=== PATIENT | male | born 1965 | race Caucasian/White ===

== ENCOUNTER 2022-08-01 13:07 | Emergency (ER) | payer OTHER, SELFPAY ==
--- NOTE | ~2022-08-01 | CT_ITS ---
EXAMINATION: CT CERVICAL SPINE CLINICAL INFORMATION: Reason for Exam fall, confusion COMPARISON: No prior CT available, TECHNIQUE: Computed axial sagittal and coronal images acquired using department's standard protocol. This CT examination was performed using dose optimization techniques as appropriate, variously including the following: *Automated exposure control *Adjustment of mA and/or kV according to patient size (this includes techniques or standardized protocols for targeted exams where dose is matched to indication/reason for exam; i.e. extremities or head) *Use of iterative reconstruction technique CONTRAST: None DLP: 1380 mGy-cm FINDINGS: SKULL BASE: Visualized structures at skull base are normal, air-fluid level left maxillary sinus. CERVICAL VERTEBRAE: Seven cervical vertebrae identified maintaining proper height and alignment, DISCS: Loss of disc height and developed osteophyte suggest degenerative disc disease at C4-C5, C5-C6, C6-C7 and C7-T1. There are osteophytes developed from the edges of endplates encroaching on the neural foramen bilaterally at C5-C6 C1-C2: There is no CT evidence of significant osseous narrowing of the central canal or neural foramen. C2-C3: There is no CT evidence of significant osseous narrowing of the central canal or neural foramen. C3-C4: There is no CT evidence of significant osseous narrowing of the central canal or neural foramen. C4-C5: There is no CT evidence of significant osseous narrowing of the central canal or neural foramen. C5-C6: Circumferential disc bulge and developed osteophyte ridge encroaching on the neural foramens especially on the left causing foraminal stenosis. There is also narrowing of the central canal at this level cannot rule out central stenosis. Bilateral facet joints arthropathy. C6-C7: There is no CT evidence of significant osseous narrowing of the central canal or neural foramen. C7-T1: There is no CT evidence of significant osseous narrowing of the central canal or neural foramen. PARAVERTEBRAL SOFT TISSUE: Paravertebral soft tissues unremarkable. CT/CT cervical spine wo IV con IMPRESSION: * No CT evidence of cervical spine fracture. * Loss of disc height and developed osteophyte suggest degenerative disc disease at multiple levels. * Narrowing of disc osteophyte encroaching on the neural foramen bilaterally at C5-C6. * Narrowing of the central canal and neural foramen especially the left at C5-C6 cannot rule out central stenosis. If patient has neurological symptoms may consider correlation with MRI. * Air-fluid level left maxillary sinus.
--- NOTE | ~2022-08-01 | CT_ITS ---
CT head/brain wo IV con CLINICAL INFORMATION: Reason for Exam fall, confusion, head strike COMPARISON: No prior CT scan available for comparison. TECHNIQUE: Department standard protocol. This CT examination was performed using dose optimization techniques as appropriate, variously including the following: *Automated exposure control *Adjustment of mA and/or kV according to patient size (this includes techniques or standardized protocols for targeted exams where dose is matched to indication/reason for exam; i.e. extremities or head) *Use of iterative reconstruction technique DLP: 908 mGy-cm FINDINGS: CEREBRAL HEMISPHERES: There is no evidence of intra-axial or extra-axial mass, hemorrhage or acute infarct. BRAIN PARENCHYMA: Normal hankins-white matter differentiation. SUBDURAL SPACE: No bleed. BASAL GANGLIA AND PINEAL GLAND: Unremarkable VENTRICLES: Symmetric and normal in size. CEREBELLUM AND BRAINSTEM: No space-occupying mass, hemorrhage or acute infarct. CEREBELLOPONTINE ANGLES: No lesion found. ORBITS: No intraorbital mass. VESSELS: Unremarkable SKULL BASE: Unremarkable INCLUDED SINUSES AT SKULL BASE: Fluid air-fluid level left maxillary sinus SKULL AND SKIN: No fracture or bone lesion found. CT/CT head/brain wo IV con IMPRESSION: No CT evidence of intracranial space-occupying mass, bleed or infarct. Air-fluid level left maxillary sinus.
[2022-08-01 13:14] VITALS: PULSE 89; O2SAT 95; BMI 35.5
--- NOTE | 2022-08-01 13:31 | ECG_ITS ---
Test Reason : FALL Blood Pressure : / mmHG Vent. Rate : 090 BPM Atrial Rate : 090 BPM P-R Int : 164 ms QRS Dur : 136 ms QT Int : 368 ms P-R-T Axes : 059 041 039 degrees QTc Int : 450 ms Normal sinus rhythm Right bundle branch block Abnormal ECG No previous ECGs available Referred By: Ana Maria Carroll Electronically Signed By:VIRGINIA WOLFE
[2022-08-01 13:48] LABS: Glucose, Whole Blood 118 mg/dL (60-115)
[2022-08-01] MEDS: Diphth,Pertus(ACell),Tet Adult 0.5 ML SYRINGE IM (14:19)
--- NOTE | 2022-08-01 14:28 | ED.FALL ---
HPI - Fall General Chief Complaint: Fall Stated Complaint: FALL W/HEADSTRIKE AND LOC,-THIN,+CCOLLAR PER EMS Time Seen by Provider: 08/01/22 13:36 Source: patient, family and EMS Mode of arrival: EMS Limitations: no limitations History of Present Illness HPI Narrative: This is a 57-year-old male who was on a statin who presents to the emergency room after fall with a head strike. Patient reports he was ice skating with his family. He is unclear the reason for the fall but he was witnessed to have a fall backwards hitting the posterior head on the ice rink wall ledge. His happen to look back at the moment that he was falling seeing the head strike. She reports loss of consciousness. This lasted for several minutes and then the patient had some confusion with waking. Patient cannot recall the fall and feels his memory is quite fussy. He does remember going to the ice skating rink but does not remember anything after that. Prior to ice skating he felt well and had no complaints over the last few days. He does report mild headache today. He denies any neck pain, chest pain, abdominal pain, vision changes, vomiting, dizziness. He does feel that he is confused. Patient transported by EMS with a C-collar in place. MD complaint: fall Fall witnessed: yes, by family Related Data Allergies Allergy/AdvReac Type Severity Reaction Status Date / Time Unable to Assess Allergy Verified 08/01/22 13:15 Review of Systems Review of Systems: Yes all other systems are reviewed and are negative Constitutional: Constitutional: Reports no additional constitutional complaints, Denies body ache(s), Denies chills, Denies fever(s), Reports headache(s) and Denies weakness Eyes: Eyes: Reports no additional eye complaints and Denies change in vision ENT: Reports system reviewed and no additional complaints, except as documented, Denies dizziness, Reports headache(s), Denies nasal congestion, Denies nasal discharge and Denies neck pain Cardiovascular: Cardiovascular: Reports no additional cardiovascular complaints, Denies chest pain, Denies leg edema and Denies dyspnea Respiratory: Respiratory: Reports no additional respiratory complaints, Denies cough and Denies dyspnea Gastrointestinal: Gastrointestinal: Reports no additional gastrointestinal complaints, Denies abdominal pain, Denies diarrhea, Denies nausea and Denies vomiting Genitourinary: Genitourinary: Denies urinary incontinence Musculoskeletal: Musculoskeletal: Reports no additional musculoskeletal complaints, Denies back pain, Denies arthralgias, Denies joint swelling, Denies neck pain, Denies numbness and Denies tingling Integumentary/Breasts: Skin/Breast: Reports system reviewed and no additional complaints, except as docu and Denies rash Neurologic: Reports system reviewed and no additional complaints, except as documented, Denies Abnormal speech present, Reports confusion, Denies dizziness, Reports headache(s), Denies numbness, Denies tingling and Denies weakness Psychiatric: Psychiatric: Reports confusion FORMERLY [facility], [facility]–1983 Past Medical History Attestation statement: The following information was validated with the patient. Source: old records reviewed and nursing notes reviewed Social History Social History Advance Directives: No Advance Directives Information Provided: No Physical Exam Vital Signs: Vital Signs: Last Vital Signs O2 Del Method 08/01/22 13:14 BMI result Body Mass Index 35.5 Const: General: confusion Orientation/consciousness: oriented to person and confusion Limitations: no limitations HEENT: Head: Yes normal to inspection, No Carson's sign and No raccoon eyes Head images: 1. 4cm laceration. no active bleeding Ears: hearing grossly normal bilaterally and TM's normal bilaterally General nose exam: Normal external nose present Face and sinus: Yes normal facial exam Mouth: Normal oral and palatal mucosa present Throat: Yes posterior oropharynx normal, Yes tonsils normal and Yes uvula midline Eyes: General: appearance normal, both eyes and all related structures Pupils: Equal, round and reactive pupils present Neck: Other: Cervical collar in place. Unable to assess range of motion due to cervical collar Neck: Yes normal visual inspection Chest: Chest palpation & inspection: normal inspection of the chest Resp: Effort & Inspection: normal respiratory effort Auscultation: clear to auscultation bilaterally Cardio: Rate: regular rate Rhythm: regular rhythm Peripheral pulses: Peripheral pulses 2+ throughout GI: Inspection: Yes normal to inspection Palpation (GI): Soft to palpation and nontender Auscultation: normal bowel sounds Back/Spine/Pelvis: Thoracic/Lumbar Spine: thoracic and lumbar spine normal to inspection Skin: General skin exam: no rashes or lesions noted Neuro: Other: Patient unaware of location or date-cannot recall General: oriented to person, moves all extremities, confusion and Unable to assess gait Cranial nerves: Yes CN's II-XII intact bilaterally, Yes Equal, round and reactive pupils present, Yes Bilaterally intact EOM present, Yes Nystagmus not present, Yes Normal facial strength present and Yes Midline tongue present Speech: No Abnormal speech present Gait exam (Neuro): Unable to assess gait Motor exam (neuro): 5/5 motor strength present throughout Sensory Exam: Normal double simultaneous stimulation for sensation Extrem: General: Yes normal to inspection NIH Stroke Scale Internal: 2 hours post treatment Level of Consciousness: Alert Level of Consciousness Questions: Answers both questions correctly Level of Consciousness Commands: Performs both tasks correctly Best Gaze: Normal Visual: No visual loss Facial Palsy: Normal Motor Arm (Right): No drift Motor Arm (Left): No drift Motor Leg (Right): No drift Motor Leg (Left): No drift Limb Ataxia: Absent Sensory: Normal Best Language: No aphasia Dysarthia: Normal Extinction and Inattention: No abnormality Score: 0 Course Course Course Narrative: 1415-[place] call for stat read of head CT Reevaluation(s) Reevaluation #1: 1600-repeat neurological exam is normal. Patient reports he is feeling better as time has gone on. He feels that some of his memory is foggy from earlier today but is able to tell me where he is, his name, the date and time. No focal finding on exam. Serial sevens normal. Gait steady up to the bathroom. I reviewed with the patient he likely has a concussion. This was also reviewed with his . We discussed head injury care at home which includes limiting screen time, getting plenty of rest, no work for several days, no sports or activities until cleared by primary care. Reviewed worrisome signs and symptoms of when to return to the emergency room. Comfortable plan for discharge home. Medications Administered Discontinued Medications Generic Name Dose Route Start Last Admin Trade Name Patricia PRN Reason Stop Dose Admin Acetaminophen 975 mg 08/01/22 15:15 08/01/22 15:20 Acetaminophen 325 Mg Tablet PO 08/01/22 15:16 975 mg ONCE ONE Administration Diphtheria/Tetanus/Acell Pertussis 0.5 ml 08/01/22 13:46 08/01/22 14:19 Diphth,Pertus(Acell),Tet Adult 0.5 Ml Syringe IM 08/01/22 13:47 0.5 ml .ONCE ONE Administration Lidocaine/Epinephrine 30 ml 08/01/22 14:30 08/01/22 15:21 Lidocaine Hcl 1% Pf/Epi 1:200,000 30 Ml Vial SUBCUT 08/01/22 14:31 30 ml ONCE ONE Administration Procedures Laceration Laceration 1: Site: scalp Size (cm): 4 Description: linear Local Anesthetic: lidocaine 1% and with epi Pre-repair: wound explored, irrigated extensively and deep structures intact Skin layer closed with: other (graciela) Number of sutures: 6 Medical Decision Making Medical Decision Making [facility] Narrative: 57-year-old male here after a fall backwards with head strike now with subsequent confusion and loss of consciousness reportedly On arrival patient is alert. Patient cannot recall location or date or time. This is not his baseline per family. Neuro exam at rest is otherwise normal. C-collar is in place unable to assess cerebellar function or gait at this time. No other complaints. No other trauma seen. Unclear why patient fell. Will check CT head/cervical spine (called CT and patient to go directly) Will obtain labs, EKG Patient with laceration that will require repair Differential Diagnosis Differential Diagnoses: The differential diagnosis associated with the presentation includes Intracranial hemorrhage, concussion, contusion, cervical fracture, cervical sprain Lab Data [facility] Lab Attestation statement: I reviewed the patient's lab results. Result Diagrams: 08/01/22 14:28 08/01/22 14:28 Labs: Lab Results 08/01/22 08/01/22 08/01/22 Range/Units 13:45 14:28 14:28 WBC 11.5 H (4.8-10.8) X10*3/uL RBC 4.91 (4.60-5.80) X10*6/uL Hgb 15.3 (14.0-18.0) g/dl Hct 45.1 (42.0-52.0) % MCV 91.9 (80.0-98.0) fL MCH 31.2 (27.0-33.0) pg MCHC 33.9 (31.0-36.0) g/dl RDW 13.2 (11.0-16.0) % Plt Count 305 (160-400) X10*3/uL MPV 8.7 L (9.4-12.4) fL Immature Gran % (Auto) 0.3 (0.0-0.4) % Neut % (Auto) 81.2 H (45-73) % Lymph % (Auto) 9.8 L (20-40) % Mitchell % (Auto) 7.8 (2-11) % Eos % (Auto) 0.5 (0-4) % Baso % (Auto) 0.4 (0-2) % Lymph # (Auto) 1.1 L (1.2-4.9) X10*3/uL Mitchell # (Auto) 0.9 (0.1-1.2) X10*3/uL Eos # (Auto) 0.1 (0.0-0.4) X10*3/uL Baso # (Auto) 0.1 (0.0-0.2) X10*3/uL Abs Immat Gran (auto) 0.04 H (0.00-0.03) X10*3/uL Absolute Neuts (auto) 9.3 H (2.0-8.3) x10*3/uL Absolute Nucleated RBC 0.000 (0.0-0.012) X10*3/uL Nucleated RBC % (auto) 0.0 (0.0-0.2) /100WBC Sodium 140 (135-145) mmol/L Potassium 4.3 (3.3-5.1) mmol/L Chloride 105 (96-108) mmol/L Carbon Dioxide 27 (22-29) mmol/L Anion Gap 12 (12-20) BUN 13 (9-16) mg/dL Creatinine 0.97 (0.5-1.4) mg/dL Estim Creat Clear Calc 92.9 Estimated GFR > 60 POC Glucose 118 H (60-115) mg/dL Random Glucose 116 H (60-115) mg/dL Calcium 9.8 (8.4-10.2) mg/dL Total Bilirubin 0.5 (0.0-1.0) mg/dL Direct Bilirubin 0.2 (0.0-0.5) mg/dL AST 19 (5-37) U/L ALT 30 (0-40) U/L Alkaline Phosphatase 82 (39-117) U/L Troponin I High Sens (<3.5-35.0) ng/L Total Protein 7.3 (6.5-8.0) g/dL Albumin 4.4 (3.5-5.0) g/dL 08/01/22 Range/Units 14:28 WBC (4.8-10.8) X10*3/uL RBC (4.60-5.80) X10*6/uL Hgb (14.0-18.0) g/dl Hct (42.0-52.0) % MCV (80.0-98.0) fL MCH (27.0-33.0) pg MCHC (31.0-36.0) g/dl RDW (11.0-16.0) % Plt Count (160-400) X10*3/uL MPV (9.4-12.4) fL Immature Gran % (Auto) (0.0-0.4) % Neut % (Auto) (45-73) % Lymph % (Auto) (20-40) % Mitchell % (Auto) (2-11) % Eos % (Auto) (0-4) % Baso % (Auto) (0-2) % Lymph # (Auto) (1.2-4.9) X10*3/uL Mitchell # (Auto) (0.1-1.2) X10*3/uL Eos # (Auto) (0.0-0.4) X10*3/uL Baso # (Auto) (0.0-0.2) X10*3/uL Abs Immat Gran (auto) (0.00-0.03) X10*3/uL Absolute Neuts (auto) (2.0-8.3) x10*3/uL Absolute Nucleated RBC (0.0-0.012) X10*3/uL Nucleated RBC % (auto) (0.0-0.2) /100WBC Sodium (135-145) mmol/L Potassium (3.3-5.1) mmol/L Chloride (96-108) mmol/L Carbon Dioxide (22-29) mmol/L Anion Gap (12-20) BUN (9-16) mg/dL Creatinine (0.5-1.4) mg/dL Estim Creat Clear Calc Estimated GFR POC Glucose (60-115) mg/dL Random Glucose (60-115) mg/dL Calcium (8.4-10.2) mg/dL Total Bilirubin (0.0-1.0) mg/dL Direct Bilirubin (0.0-0.5) mg/dL AST (5-37) U/L ALT (0-40) U/L Alkaline Phosphatase (39-117) U/L Troponin I High Sens < 3.5 (<3.5-35.0) ng/L Total Protein (6.5-8.0) g/dL Albumin (3.5-5.0) g/dL Independent Interpretation I performed an independent interpretation of an: EKG and CT Scan (I independently reviewed the CT scan. CT negative for any acute bleed) Interpretation: I independently reviewed the EKG which shows normal sinus rhythm with a rate of 90, normal ID, normal QRS, normal QT Radiology Impression Discussion of test interpretation with radiology: I have reviewed the radiologist's reading. Radiologist Impression: FINDINGS: ? CEREBRAL HEMISPHERES: There is no evidence of intra-axial or extra-axial mass, hemorrhage or acute infarct. BRAIN PARENCHYMA: Normal hankins-white matter differentiation. SUBDURAL SPACE: No bleed. BASAL GANGLIA AND PINEAL GLAND: Unremarkable VENTRICLES: Symmetric and normal in size. CEREBELLUM AND BRAINSTEM: No space-occupying mass, hemorrhage or acute infarct. CEREBELLOPONTINE ANGLES: No lesion found. ORBITS: No intraorbital mass. VESSELS: Unremarkable SKULL BASE: Unremarkable INCLUDED SINUSES AT SKULL BASE: Fluid air-fluid level left maxillary sinus SKULL AND SKIN: No fracture or bone lesion found. CT/CT head/brain wo IV con IMPRESSION: No CT evidence of intracranial space-occupying mass, bleed or infarct. ? Air-fluid level left maxillary sinus. Independent Historian Clinical information obtained from an independent historian. History obtained from or confirmed by: Spouse Discharge Plan Discharge Clinical Impression: Concussion with loss of consciousness, Laceration of head Patient Disposition: Home, Self-Care Additional Instructions: No work for at least 3-4 days Limit screen time including TVs and phone. Get plenty of brain rest Return for severe headache, multiple episodes of vomiting, change in behavior No sports or activity until re-evaluated by primary care Follow-up with primary care within 7-10 days Hard[place] should be removed in 10 days You may wash your hair normal Referrals: Physician,Unknown J [Primary Care Provider] - 1 week Stand Alone Forms: Work/School Release Interventions: ED Discharge Assessment Last Done: 08/01/22 16:50 Discharge Date/Time: 08/01/22 16:51
[2022-08-01 14:35] LABS: MANUAL DIFF FLAG NO
[2022-08-01 14:37] LABS: Basophils Absolute Auto 0.1 X10*3/uL (0.0-0.2); Basophils Percent Auto 0.4 % (0-2); Eosinophils Absolute Auto 0.1 X10*3/uL (0.0-0.4); Eosinophils Percent Auto 0.5 % (0-4); Hematocrit 45.1 % (42.0-52.0); Hemoglobin 15.3 g/dl (14.0-18.0); Imm Gran Abs Auto 0.04 X10*3/uL (0.00-0.03); Imm Gran Pct Auto 0.3 % (0.0-0.4); Lymphocytes Absolute Auto 1.1 X10*3/uL (1.2-4.9); Lymphocytes Percent Auto 9.8 % (20-40); Mean Corpuscular HGB Conc 33.9 g/dl (31.0-36.0); Mean Corpuscular Hemoglobin 31.2 pg (27.0-33.0); Mean Corpuscular Volume 91.9 fL (80.0-98.0); Mean Platelet Volume 8.7 fL (9.4-12.4); Monocytes Absolute Auto 0.9 X10*3/uL (0.1-1.2); Monocytes Percent Auto 7.8 % (2-11); Neutrophils Absolute Auto 9.3 x10*3/uL (2.0-8.3); Neutrophils Percent Auto 81.2 % (45-73); Platelet Count 305 X10*3/uL (160-400); Red Blood Count 4.91 X10*6/uL (4.60-5.80); Red Cell Distribution Width 13.2 % (11.0-16.0); White Blood Count 11.5 X10*3/uL (4.8-10.8)
[2022-08-01 14:54] LABS: Alanine Aminotransferase 30 U/L (0-40); Albumin Level 4.4 g/dL (3.5-5.0); Alkaline Phosphatase 82 U/L (39-117); Anion Gap 12 (12-20); Aspartate Amino Transferase 19 U/L (5-37); Bilirubin Direct 0.2 mg/dL (0.0-0.5); Bilirubin Total 0.5 mg/dL (0.0-1.0); Blood Urea Nitrogen 13 mg/dL (9-16); Calcium 9.8 mg/dL (8.4-10.2); Carbon Dioxide 27 mmol/L (22-29); Chloride 105 mmol/L (96-108); Creatinine Clr Calc Pharmacy 92.9; Estimated Glomerular Filt Rate > 60; Glucose Random 116 mg/dL (60-115); Potassium 4.3 mmol/L (3.3-5.1); Sodium 140 mmol/L (135-145); Total Protein 7.3 g/dL (6.5-8.0)
[2022-08-01 15:02] LABS: Troponin-I High Sensitivity < 3.5 ng/L (<3.5-35.0)
[2022-08-01] MEDS: Acetaminophen 325 MG TABLET 975 MG PO (15:20)
[2022-08-01] MEDS: Lidocaine HCl 1% PF/Epi 1:200,000 30 ML VIAL SUBCUT (15:21)
== END 2022-08-01 16:51 | disposition home or self-care (01) ==
PROVIDERS: Nurse Practitioner Family; Emergency Provider Student in an Organized Health Care Education/Training Program
DX: S06.0X1A Concussion with loss of consciousness of 30 minutes or less, initial encounter (principal); S01.01XA Laceration without foreign body of scalp, initial encounter; W00.0XXA Fall on same level due to ice and snow, initial encounter; Y93.21 Activity, ice skating; Y92.330 Ice skating rink (indoor) (outdoor) as the place of occurrence of the external cause; Y99.9 Unspecified external cause status; Z23 Encounter for immunization
CPT/HCPCS: 12002; 36415; 70450; 72125; 80048; 80076; 82947; 84484; 85025; 90471; 90715; 93005; 99284

== ENCOUNTER 2023-10-29 19:47 | Emergency (ER) | payer OTHER, SELFPAY ==
[2023-10-29 20:11] VITALS: BP 132/84; PULSE 91; RESP 18; TEMP 36.6; O2SAT 99; BMI 32.1
--- NOTE | 2023-10-29 21:32 | ED.SKABFB ---
HPI - Skin/Abscess/Foreign Bdy General Chief complaint: Skin/Abscess/Foreign Body Stated complaint: tick bite, imbedded Time Seen by Provider: 10/29/23 21:04 Source: patient and family Mode of arrival: ambulatory Limitations: no limitations History of Present Illness HPI narrative: 58 yo male with PMH of HLD here with c/o L neck tick bite - since yesterday attempted self removal and part of tick is embedded still. complaint: insect bite/sting Onset (ago): day(s) (yesterday went into [facility]) Tetanus up to date: yes Location: neck Severity: mild Pain Consistency: constant Relieving factors: none Exacerbating factors: none Context: other (went into [facility] to do trail cams) Associated symptoms: denies other symptoms Treatments prior to arrival: other (attempts at removal at home did not clean site before or sterilize) Related Data Previous Rx's Medication Instructions Recorded cephalexin 500 mg capsule 500 mg PO QID 5 days #20 caps 10/29/23 Allergies Allergy/AdvReac Type Severity Reaction Status Date / Time No Known Allergies Allergy Verified 10/29/23 20:11 Review of Systems Review of Systems: Constitutional : No Fever, No Chills, Cardiovascular : No Chest Pain, No SOB Respiratory : No Dyspnea Gastrointestinal : No abdominal pain Musculoskeletal : No Joint Swelling Skin : No rash, positive skin lesion Neuro : No Weakness, No Numbness PMFSH Past Medical History Attestation statement: The following information was validated with the patient. Medical History Hyperlipidemia Social History Social History (Updated 10/29/23 @ 21:37 by Shira Arthur DO) Patient Tobacco Use Status: Never used Tobacco Physical Exam Vital Signs: Vital Signs: Last Vital Signs Temp 98 F 10/29/23 20:11 Pulse 91 10/29/23 20:11 Resp 18 10/29/23 20:11 BP 132/84 10/29/23 20:11 Pulse Ox 99 10/29/23 20:11 O2 Del Method Room Air 10/29/23 20:11 BMI result Body Mass Index 32.1 Appearance: Alert. Oriented X3. No acute distress. Eyes: Pupils equal, round and reactive to light. ENT: Pharynx normal. Neck: Normal inspection. L anterior neck near clavicle area is tick FB seen part of leg and body of tick with puffy red area but no abscess noted no ring noted CVS: Pulses normal. Respiratory: No respiratory distress. Abdomen: Soft and nontender. Skin: Skin warm and dry. Normal skin color. Extremities: No lower extremity edema. Neuro: Oriented X 3. No motor deficit. No sensory deficit. Medical Decision Making Medical Decision Making MDM Narrative: 58 yo male with embedded tick since yesterday with attempts at removal at home - will remove dose with doxy 200mg and then given attempts at removal at home with concern for possible start of infection will start on cephalexin with return precautions. Differential Diagnosis Differential Diagnoses: The differential diagnosis associated with the presentation includes tick bite, early cellulitis Independent Historian Clinical information obtained from an independent historian. History obtained from or confirmed by: Spouse Prescription Management I considered prescription management with: Antibiotic Procedures Foreign Body Removal Time Out Performed: yes Site: other (neck area) Description of foreign body: insect Technique: manual removal and removal with forceps (in entirety) Confirmed by:: direct visualization Complications: none Post-procedure exam: awake, alert Neurovascular: other (normal post exam) Discharge Plan Discharge Clinical Impression: Tick bite Qualifiers: Encounter type: initial encounter Site of tick bite: unspecified part of neck Qualified Code(s): S10.96XA - Insect bite of unspecified part of neck, initial encounter Patient Disposition: Home, Self-Care Instructions: Tick Bite (ED) Additional Instructions: monitor for increased redness, yellow drainage, development of large abscess or pimple. more than 8 stools a day while on antibiotic is not normal you were given a dose of doxycycline to prevent Lyme disease while in the ER Prescriptions: New cephalexin 500 mg capsule 500 mg PO QID 5 Days Qty: 20 0RF
[2023-10-29] MEDS: Doxycycline Monohydrate 100 MG CAPSULE 200 MG PO (21:45)
[2023-10-29 21:51] VITALS: BP 130/86; PULSE 92; RESP 16; TEMP 36.8; O2SAT 99
== END 2023-10-29 21:52 | disposition home or self-care (01) ==
PROVIDERS: Emergency Provider Emergency Medicine; PCP Family Medicine
DX: S10.96XA Insect bite of unspecified part of neck, initial encounter (principal); M79.5 Residual foreign body in soft tissue; W57.XXXA Bitten or stung by nonvenomous insect and other nonvenomous arthropods, initial encounter; Y93.9 Activity, unspecified; Y92.828 Other wilderness area as the place of occurrence of the external cause; Y99.9 Unspecified external cause status
CPT/HCPCS: 99283; 99284